=== PATIENT | female | born 1965 | race Caucasian/White ===

== ENCOUNTER 2019-01-16 16:49 | Outpatient (CLI) | payer BC ==
[2019-01-16 17:44] LABS: #Basophils 0.1 thou/uL (0.0-0.2); #Eosinphils 0.1 thou/uL (0.0-0.7); #Lymphocytes 2.7 thou/uL (1.20-3.40); #Monocytes 0.4 thou/uL (0.11-0.59); #Neutrophils 5.3 thou/uL (1.40-6.50); %Basophils 0.6 % (0.0-1.0); %Eosinophils 1.4 % (0.0-10.0); %Lymphocytes 31.4 % (21.0-51.0); %Monocytes 4.9 % (0.0-10.0); %Neutrophils 61.7 % (42.0-75.0); Hemoglobin 13.6 g/dL (12.0-16.0); Mean Corpuscular HGB CONC 35.3 g/dL (32.0-36.0); Mean Corpuscular Volume 90.7 fL (78.0-98.0); Mean Platelet Volume 8.7 fL (7.4-10.4); Platelet Count 263 thou/uL (130-400); RBC Distribution Width 11.5 % (11.5-14.5); Red Blood Cell (RBC) Count 4.27 mill/uL (4.20-5.40); White Blood Cell (WBC) Count 8.6 thou/uL (4.8-10.8)
[2019-01-16 19:03] LABS: Anion Gap 19 mmol/L (10-20); BUN (Urea Nitrogen) 25 mg/dL (9.8-20.1); Calc. Creatinine Clearance 0 mL/min (70-130); Calcium 9.5 mg/dL (7.8-10.44); Carbon Dioxide 20 mmol/L (22-29); Chloride 104 mmol/L (98-107); Estimated GFR-MDRD 85; Glucose 89 mg/dL (70-105); Potassium 4.1 mmol/L (3.5-5.1); Sodium 139 mmol/L (136-145)
== END 2019-01-16 16:50 | disposition home or self-care (01) ==
LOC: LABBT 16:49
PROVIDERS: ATTEND Orthopaedic Surgery
DX: Z01.818 Encounter for other preprocedural examination (principal); S83.206A Unspecified tear of unspecified meniscus, current injury, right knee, initial encounter; M17.12 Unilateral primary osteoarthritis, left knee
CPT/HCPCS: 80048; 85025; 93005; 93010

== ENCOUNTER 2019-01-19 05:58 | Day surgery (SDC) | payer BC ==
[2019-01-16 17:17] VITALS: BMI 29.2
[2019-01-19] MEDS ORDERED: Bupivacaine/Epinephrine 0.25% 30 ML VIAL ONE (06:33)
[2019-01-19] MEDS ORDERED: Bupivacaine HCl 0.5%/Epinephrine 1:200,000/PF 30 ml Vial ONE (06:33)
[2019-01-19] MEDS ORDERED: Fentanyl 100 MCG/2 ML VIAL ONE ×2 (06:40→07:36)
[2019-01-19] MEDS ORDERED: Midazolam HCl 2 mg/2 ml Vial ONE ×2 (06:40→07:19)
[2019-01-19] MEDS ORDERED: PROPOFOL 20 ML ONE (06:42)
[2019-01-19] MEDS ORDERED: Scopolamine 1.5 mg/72 hour Patch ONE (07:12)
[2019-01-19] MEDS ORDERED: Famotidine/PF 20 mg/2ml Vial ONE (07:12)
[2019-01-19] MEDS ORDERED: Lidocaine 1% (PF) 30 ML VIAL ONE (08:03)
[2019-01-19] MEDS ORDERED: methylPREDNISolone Acetate 40 mg/ml Vial ONE (08:03)
--- NOTE | 2019-01-19 15:26 | OP ---
DATE OF PROCEDURE: 01/19/2019 PREOPERATIVE DIAGNOSES: 1. Right knee complex displaced posterior horn medial meniscus tear with flap components. 2. Left knee osteoarthrosis. POSTOPERATIVE DIAGNOSES: 1. Right knee complex displaced posterior horn medial meniscus tear with flap components. 2. Left knee osteoarthrosis. PROCEDURES PERFORMED: 1. Right knee arthroscopy with partial medial meniscectomy. 2. Left knee corticosteroid injection. ANESTHESIA: She did have a general anesthetic as well as a local knee block. DISPOSITION: She went to recovery room in stable condition. REGULATORY AFFAIRS PORTFOLIO LEADER: None. ESTIMATED BLOOD LOSS: Minimal. COMPLICATIONS: None. INDICATIONS FOR PROCEDURE: This is a 53-year-old active female, who has been putting off getting her knee operated on for nearly the entire year secondary to things that she has to get done for her family. At this time, she wished to have her knee operated on for a painful meniscus tear. DESCRIPTION OF PROCEDURE: After all appropriate consent forms were explained and signed, she was taken back to the operative room, and at this time, was given general anesthetic. Once the level of anesthesia was appropriate, the left knee was cleaned off with alcohol and an injection including 1% plain lidocaine and 80 mg of Depo-Medrol was injected into the left knee without complication. Band-Aid was applied. Tourniquet was then placed on the right thigh, and leg was placed in arthroscopic leg marquez. The limb was then prepped and draped in standard surgical fashion. The limb was exsanguinated, and tourniquet taken up to 300 mmHg. Inferolateral portal was established. Scope was placed into the knee joint. A needle localization technique was then used to make a medial working portal. Diagnostic arthroscopy commenced in the notch. The ACL and PCL were probed, found to be intact. Medial compartment showed the femur to have some global grade 2 changes. There was no exposed bone. The tibial plateau did have some grade 2 changes as well. Again, no exposed bone. There was a complex tear of the posterior horn medial meniscus including some very large flap components, one went into the notch and the other one flipped underneath the body of the medial meniscus. These were pulled out from where they laid, and a combination of meniscal biter and shaver was then used to remove the flaps and any torn portion of the meniscus. This removed a significant portion of the posterior horn medial meniscus approximately 70%. The body and anterior horn were in good condition. Lateral compartment was intact and really normal in appearance. The gutters were swept through, no loose bodies were noted. The patellofemoral joint was also normal in appearance. At this time, the scope was removed. Knee was drained. Portals were closed with simple nylon stitch. Bulky sterile dressing was applied, and the tourniquet was let down. Toes pinked up nicely. The patient was awakened. She was taken to recovery room in stable condition. All counts were correct at the end of the case and she received preoperative IV antibiotics. Job ID: [id number]
== END 2019-01-19 11:00 | disposition home or self-care (01) ==
LOC: SDC 05:58
PROVIDERS: ATTEND Orthopaedic Surgery
PROC: 3E0U3NZ Introduction of Analgesics, Hypnotics, Sedatives into Joints, Percutaneous Approach (ICD-10-PCS; principal; 2019-01-19)
PROC: 0SBC4ZZ Excision of Right Knee Joint, Percutaneous Endoscopic Approach (ICD-10-PCS; principal; 2019-01-19)
DX: S83.231A Complex tear of medial meniscus, current injury, right knee, initial encounter (principal); M17.12 Unilateral primary osteoarthritis, left knee; Z79.899 Other long term (current) drug therapy; Z88.2 Allergy status to sulfonamides
CPT/HCPCS: J0131; J0670; J0690; J1030; J2001; J2250; J2704; J3010; S0028